=== PATIENT | male | born 1935 | race Hispanic/Latino ===

== ENCOUNTER → 2019-05-02 | Outpatient (CLI) | payer MEDICARE | END | disposition home or self-care (01) | LOC: RAH 13:54 | PROVIDERS: ATTEND Family Medicine | DX: R90.82 White matter disease, unspecified (principal) | CPT/HCPCS: 70450 ==

== ENCOUNTER → 2020-12-25 | Outpatient (CLI) | payer MEDICARE | END | disposition home or self-care (01) | LOC: RAH 11:26 | PROVIDERS: ATTEND Family Medicine | DX: R60.9 Edema, unspecified (principal) | CPT/HCPCS: 93970 ==